=== PATIENT | male | born 1950 | race Caucasian/White ===

== ENCOUNTER → 2017-05-23 | Outpatient (CLI) | payer MEDICARE ==
--- NOTE | 2017-05-23 19:48 | US ---
EXAMINATION TYPE: US carotid duplex BILAT DATE OF EXAM: 05/23/2017 COMPARISON: NONE CLINICAL HISTORY: R41.3 Memory loss / Z86.73 Personal hx TIA. Memory loss EXAM MEASUREMENTS: RIGHT: Peak Systolic Velocity (PSV) cm/sec ----- Right CCA: 108.1 ----- Right ICA: 69.3 ----- Right ECA: 120.0 ICA/CCA ratio: 0.9 RIGHT: End Diastole cm/sec ----- Right CCA: 35.4 ----- Right ICA: 19.2 ----- Right ECA: 23.4 LEFT: Peak Systolic Velocity (PSV) cm/sec ----- Left CCA: 98.4 ----- Left ICA: 108.1 ----- Left ECA: 169.8 ICA/CCA ratio: LEFT: End Diastole cm/sec ----- Left CCA: 25.7 ----- Left ICA: 25.7 ----- Left ECA: 24.8 VERTEBRALS (direction of flow): Right Vertebral: Antegrade Left Vertebral: Antegrade Rhythm: Normal Bilateral vessels dive deep. Increased velocity in left ECA and right mid CCA. No significant stenosi s seen IMPRESSION: There is antegrade flow in the vertebral arteries. The images and measurements suggest u p to 25% stenosis in both internal carotid arteries. There is plaque and 50% narrowing of the proxima l right external carotid artery. Criteria for Assigning % of Stenosis / Diameter reduction (Estimation based on the indirect measurements of the internal carotid artery velocities (ICA PSV). 1. Normal (no stenosis)=ICA PSV < 125 cm/s: ratio < 2.0: ICA EDV<40 cm/s. 2. Less than 50% stenosis=ICA PSV < 125 cm/s: ratio < 2.0: ICA EDV<40 cm/s. 3. 50 to 69% stenosis=ICA PSV of 125 to 230 cm/s: ration 2.0 ? 4.0: ICA EDV 40-100 cm/s. 4. Greater than 70% stenosis to near occlusion= ICA PSV > 230 cm/s: ratio > 4.0: ICA EDV > 100 cm/s. 5. Near occlusion= ICA PSV velocities may be low or undetectable: variable ratio and ICA EDV. 6. Total occlusion=unable to detect flow.
--- NOTE | 2017-05-23 23:44 | MR ---
EXAMINATION TYPE: MR brain wo con DATE OF EXAM: 05/23/2017 COMPARISON: NONE HISTORY: Memory loss Standard multiplanar, multisequence MRI departmental protocol Multiplanar, multisequence images of the brain were acquired. Diffusion weighted imaging was performe d. FINDINGS: Ventricles have normal size. There is no mass effect nor midline shift. There is no sign of intracranial hemorrhage. There is no evidence of cerebral edema. I see no sign of a cortical infarct . Brainstem appears intact. Corpus callosum is within normal limits for age. Sella turcica appears no rmal. There is minimal mucosal thickening in the ethmoid air cells. IMPRESSION: Minimal ethmoid sinusitis. There is mild cerebral atrophy appropriate for age. Otherwise negative exa m.
== END | disposition home or self-care (01) ==
LOC: RADMRIMAIN 17:03
PROVIDERS: ATTEND Psychiatry & Neurology Neurology
DX: G31.1 Senile degeneration of brain, not elsewhere classified (principal); I65.21 Occlusion and stenosis of right carotid artery; Z86.73 Personal history of transient ischemic attack (TIA), and cerebral infarction without residual deficits
CPT/HCPCS: 70551; 93880

== ENCOUNTER → 2024-06-11 | Outpatient (CLI) | payer MEDICARE ==
--- NOTE | 2024-06-11 09:20 | XR ---
EXAMINATION TYPE: XR chest 2V DATE OF EXAM: 06/11/2024 CLINICAL INDICATION: Male, 74 years old with history of SOB, TECHNIQUE: Frontal and lateral views of the chest are obtained. COMPARISON: Outside chest x-ray August 10, 2012 FINDINGS: There is no focal air space opacity, pleural effusion, or pneumothorax seen. The cardiac silhouette size is stable and within normal limits. The osseous structures are intact. IMPRESSION: No acute cardiopulmonary process. [facility], , 06/11/2024 9:17 AM
== END | disposition home or self-care (01) ==
LOC: RADXRMAIN 09:03
PROVIDERS: ATTEND Family Medicine
DX: R06.02 Shortness of breath (principal)
CPT/HCPCS: 71046

== ENCOUNTER → 2024-06-25 | Outpatient (CLI) | payer MEDICARE ==
--- NOTE | 2024-06-25 13:13 | FL ---
EXAMINATION TYPE: FL barium swallow w video DATE OF EXAM: 06/25/2024 MODIFIED SWALLOW / DEGLUTITION STUDY CLINICAL HISTORY: Dysphagia. TECHNIQUE: Deglutition study is performed utilizing thin liquid barium, honey and nectar thick liqui d barium, barium thick pudding, and barium coated cracker. 1 minute 11 seconds of fluoro time and 15 images obtained. Total dose area product (DAP) in uGy*m?, mGy*cm? (or similar): n/p COMPARISON: Same day CT neck study. FINDINGS: The oral and pharyngeal phases show satisfactory initiation and propagation with all modali ties tested. Normal mastication is seen with solid modalities tested. A few episodes of transient pe netration with thin liquid barium. No aspiration with any modality tested. No significant pharyngeal residue was appreciated. IMPRESSION: No aspiration identified. Please refer to speech therapist notes for further details if necessary. [facility], , 06/25/2024 1:11 PM
== END | disposition home or self-care (01) ==
LOC: RADFLMAIN 07:35
PROVIDERS: ATTEND Otolaryngology
DX: R13.13 Dysphagia, pharyngeal phase (principal)
CPT/HCPCS: 74230

== ENCOUNTER → 2024-06-25 | Outpatient (CLI) | payer MEDICARE ==
[2024-06-25 08:07] LABS: African American GFR (CKD) >90 (>60 ml/min/1.73 sqM); Blood Urea Nitrogen 22 mg/dL (9-20); Non-African American GFR(CKD) >90 (>60 ml/min/1.73 sqM)
--- NOTE | 2024-06-25 09:06 | CT ---
EXAMINATION TYPE: CT soft tissue neck w con DATE OF EXAM: 06/25/2024 8:53 AM COMPARISON: None. CLINICAL INDICATION: Male, 74 years old with history of R13.10 DYSPHAGIA, UNSPECIFIED; PHH, dysphagia and dysphonia. TECHNIQUE: Standard enhanced CT of the neck. Axial sections with coronal and sagittal reformats were obtained. Contrast used:100ml mL of Isovue 300 with IV Contrast, CT DLP: 420.50 mGycm, Automated exposure control for dose reduction was used. FINDINGS: Visualized intracranial structures, orbits and globes, and mastoid air cells appear clear. There is l eftward nasal septal deviation. Mild lobulated mucosal thickening floor of the right maxillary sinus. Nasopharynx is clear. Oropharynx is clear. The epiglottis and prevertebral soft tissues are satisfactory. There may be slight asymmetric thickening along the right vocal fold, axial image 43 which can be cor related with direct inspection. Otherwise, subglottic structures and visualized upper lungs are clear. Thyroid gland shows a 9 mm cystic nodule in the left lobe of questionable clinical significance. Submandibular glands are satisfactory. Parotid glands are atrophic. No cervical adenopathy identified. Bones: Degenerative change particularly at the right sternoclavicular joint. Mild to moderate spondyl otic change mid to lower cervical spine. IMPRESSION: 1. Slight asymmetric thickening along the right vocal fold. Possibly positional. This can be correlat ed with direct inspection to exclude any mucosal lesion. 2. Slight leftward nasal septal deviation and mild mucosal thickening floor of the right maxillary si nus. 3. Incidental 9 mm cystic nodule left thyroid lobe of questionable clinical significance. [facility], Workstation: [id number], 06/25/2024 9:04 AM
== END | disposition home or self-care (01) ==
LOC: RADCTMAIN 07:20
PROVIDERS: ATTEND Family Medicine
DX: J02.9 Acute pharyngitis, unspecified (principal); J34.2 Deviated nasal septum
CPT/HCPCS: 82565; 84520; 70491; 36415; Q9967

== ENCOUNTER → 2024-07-20 | Outpatient (CLI) | payer MEDICARE ==
--- NOTE | 2024-07-21 08:09 | MR ---
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 Pain in neck for 2 months. TECHNIQUE: Multiplanar, multisequence imaging of the cervical spine is performed without and with IV contrast, 7.5 cc of gadolinium was given intravenously. COMPARISON: CT neck June 25, 2024. FINDINGS: Sagittal images of the cervical spine show the craniocervical junction to appear within nor mal limits. The cervical and upper thoracic spinal cord is normal in course, caliber, and signal. V ertebral alignment is stable and satisfactory. The vertebral body heights are normal. Some mild-to-m oderate multilevel disc space narrowing is redemonstrated. The bone marrow signal intensity is within normal limits. No suspicious postcontrast enhancement is seen. Axial images show C2-C3 level to appear within normal limits. Axial images at C3-C4 level showed broad based posterior disc protrusion effacing the anterior thecal sac and uncovertebral facet degenerative change bilaterally causing moderate to severe right greater than left bilateral neural foraminal narrowing. Axial images at C4-C5 level show loculated posterior disc protrusion effacing anterior thecal sac and uncovertebral facet spurring causing mild left and severe right-sided neural foraminal narrowing. Axial images at C5-C6 level show left paracentral disc protrusion effacing the anterolateral thecal s ac and marginal spurring causing mild bilateral neural foraminal narrowing. Axial images at C6-C7 and C7-T1 levels appear within normal limits. IMPRESSION: Multilevel degenerative changes in the upper to mid cervical spine are present as detaile d above. [facility], , 07/21/2024 8:06 AM
== END | disposition home or self-care (01) ==
LOC: RADMRIMAIN 17:54
PROVIDERS: ATTEND Psychiatry & Neurology Neurology
DX: M47.812 Spondylosis without myelopathy or radiculopathy, cervical region (principal); M50.31 Other cervical disc degeneration, high cervical region; M99.71 Connective tissue and disc stenosis of intervertebral foramina of cervical region
CPT/HCPCS: 72156; A9585

== ENCOUNTER → 2024-07-25 | Outpatient (CLI) | payer MEDICARE | END | disposition home or self-care (01) | LOC: LABWHC1 12:25 | PROVIDERS: ATTEND Psychiatry & Neurology Neurology | DX: M26.81 Anterior soft tissue impingement (principal); R25.3 Fasciculation; R49.8 Other voice and resonance disorders | CPT/HCPCS: 36415 ==

== ENCOUNTER → 2024-07-25 | Outpatient (CLI) | payer MEDICARE ==
--- NOTE | 2024-07-25 15:17 | MR ---
EXAMINATION TYPE: MR brain wo/w con DATE OF EXAM: 07/25/2024 1:37 PM COMPARISON: 05/23/2017.. CLINICAL INDICATION: Male, 74 years old with history of R47.1 DYSARTHRIA AND ANARTHRIA; PHH, problems with speech TECHNIQUE: Multi planar, multi sequence imaging was performed through the brain including: T1, T2, In version recovery, susceptibility weighted imaging and gradient echo imaging and Diffusion weighted im aging. The patient was then given intravenous contrast and multi planar, T1 fat-saturation images wer e obtained. IV Contrast: 7ml mL Gadobutrol FINDINGS: The padilla-white junctions, ventricular system, basal cisterns appear unremarkable. Diffusion-weighted imaging shows no evidence of restricted diffusion to suggest acute/subacute infarct. Intracranial ar terial flow voids are maintained. Midline structures show no abnormality. Minimal scattered foci of h igh T2 signal intensity are seen within the periventricular white matter. The susceptibility weighted images do not reveal any evidence for micro-hemorrhage. After administration of gadolinium, no abnor mal enhancement is seen. The bone marrow signal is within normal limits. Paranasal sinuses and mastoid air cells: No significant paranasal sinus disease. Visualized orbits: Orbital contents are intact. IMPRESSION: 1. No evidence of intracranial mass, acute/subacute infarct, or abnormal enhancement. 2. Minimal Nonspecific white matter changes, likely related to small vessel ischemic disease. [facility], , 07/25/2024 3:15 PM
== END | disposition home or self-care (01) ==
LOC: RADMRIMAIN 12:49
PROVIDERS: ATTEND Otolaryngology
DX: R90.82 White matter disease, unspecified (principal); R47.1 Dysarthria and anarthria
CPT/HCPCS: 70553; A9585

== ENCOUNTER 2024-08-13 08:19 | Emergency (ER) | payer MEDICARE ==
[2024-08-13 08:34] VITALS: BP 152/96; RESP 18; TEMP 97.2
[2024-08-13 08:51] VITALS: PULSE 90
--- NOTE | 2024-08-13 08:54 | ED ---
General Adult HPI - General Chief complaint: Recheck/Abnormal Lab/Rx Stated complaint: weakness, slurred speech Time Seen by Provider: 08/13/24 08:25 Source: patient, RN notes reviewed, old records reviewed Mode of arrival: ambulatory Limitations: no limitations - History of Present Illness Initial comments: This is a 74-year-old male who has had a 4-month history of difficulty breathing difficulty swallowing and now some weakness in his neck such that is hard to hold his neck up. Patient has had an extensive workup and everything so far has been negative he is waiting for referral from [facility] but it has been 2 weeks and his symptoms are progressing. Patient has had no fever or chills. Patient denies chest pain or palpitations. Patient any abdominal pain. Patient has nausea vomiting. Patient thinks he is dehydrated because he has not been able to drink normally. - Related Data Allergies Allergy/AdvReac Type Severity Reaction Status Date / Time No Known Allergies Allergy Verified 08/13/24 08:34 Review of Systems ROS Statement: Those systems with pertinent positive or pertinent negative responses have been documented in the HPI. ROS Other: All systems not noted in ROS Statement are negative. Past Medical History Past Medical History: Hyperlipidemia, Hypertension History of Any Multi-Drug Resistant Organisms: None Reported Past Surgical History: No Surgical Hx Reported Past Psychological History: No Psychological Hx Reported Smoking Status: Never smoker Past Alcohol Use History: Occasional Past Drug Use History: None Reported General Exam - General Exam Comments Initial Comments: GENERAL: Patient is well-developed and well-nourished. Patient is nontoxic and well- hydrated and is in mild distress. ENT: Neck is soft and supple. No significant lymphadenopathy is noted. Oropharynx is clear. Moist mucous membranes. Neck has full range of motion without eliciting any pain. EYES: The sclera were anicteric and conjunctiva were pink and moist. Extraocular movements were intact and pupils were equal round and reactive to light. Eyelids were unremarkable. PULMONARY: Unlabored respirations. Good breath sounds bilaterally. No audible rales rhonchi or wheezing was noted. CARDIOVASCULAR: There is a regular rate and rhythm without any murmurs gallops or rubs. ABDOMEN: Soft and nontender with normal bowel sounds. SKIN: Skin is clear with no lesions or rashes and otherwise unremarkable. NEUROLOGIC: Patient is alert and oriented x3. Cranial nerves II through XII are grossly intact. Motor and sensory are also intact. Patient has a hoarse voice. Symmetrical smile. MUSCULOSKELETAL: Normal extremities with adequate strength and full range of motion. No lower extremity swelling or edema. No calf tenderness. LYMPHATICS: No significant lymphadenopathy is noted PSYCHIATRIC: Normal psychiatric evaluation. Limitations: no limitations Course Vital Signs 08/13/24 08:25 Temperature 97.2 F L Pulse Rate 90 Respiratory 18 Rate Blood Pressure 152/96 O2 Sat by Pulse 98 Oximetry Medical Decision Making - Medical Decision Making Was pt. sent in by a medical professional or institution (VANNESA Clifton, [employer] II [employer]SEM[employer]ER, urgent care, hospital, or [facility]...) When possible be specific @ -No Did you speak to anyone other than the patient for history (EMS, parent, family, police, friend...)? What history was obtained from this source @ -No Did you review nursing and triage notes (agree or disagree)? Why? @ -I reviewed and agree with nursing and triage notes Were old charts reviewed (outside hosp., previous admission, EMS record, old EKG, old radiological studies, urgent care reports/EKG's, [facility] records)? Report findings @ -No old charts were reviewed Differential Diagnosis? @ -Differential Weakness: Hypoglycemia, myasthenia gravis, Guillain-Connor, ALS, shock, sepsis, hyponatrem ia, anemia, infection, MA, ETOH, adverse medicine reaction, overdose, stroke, this is not meant to be an all-inclusive list. EKG interpreted by me (3pts min.). @ -As above X-rays interpreted by me (1pt min.). @ -None done CT interpreted by me (1pt min.). @ -None done U/S interpreted by me (1pt. min.). @ -None done What testing was considered but not performed or refused? (CT, X-rays, U/S, labs)? Why? @ -None What meds were considered but not given or refused? Why? @ -None Did you discuss the management of the patient with other professionals (professionals i.e. VANNESA Clifton, B[employer] II ASSEMBLER, lab, RT, psych nurse, social research assistant, delicatessen slicer, teacher, environmental protection officer, immigration case manager)? Give summary @ -I spoke with Dr. Nair about this case as well as Dr. Riley. Was smoking cessation discussed for >3mins.? @ -No Was critical care preformed (if so, how long)? @ -No Were there social determinants of health that impacted care today? How? (Homelessness, low income, unemployed, alcoholism, drug addiction, transportat ion, low edu. Level, literacy, decrease access to med. care, nursing home, rehab)? @ -No Was there de-escalation of care discussed even if they declined (Discuss DNR or withdrawal of care, Hospice)? DNR status @ -No What co-morbidities impacted this encounter? (DM, HTN, Smoking, COPD, CAD, Cancer, CVA, ARF, Chemo, Hep., AIDS, mental health diagnosis, sleep apnea, morbid obesity)? @ -None Was patient admitted / discharged? Hospital course, mention meds given and route, prescriptions, significant lab abnormalities, going to OR and other pertinent info. @ -Patient states he is slowly getting worse but he is stable to go home and will continue to call the neuromuscular center that Dr. Riley recommended. I also spoke with Dr. Ballard's office they stated that they would call the office today to try to expedite the care of this patient. Patient states he will return back to the ER if symptoms worsen and he has any problems breathing Undiagnosed new problem with uncertain prognosis? @ -No Drug Therapy requiring intensive monitoring for toxicity (Heparin, Nitro, Insulin, Cardizem)? @ -No Were any procedures done? @ -No Diagnosis/symptom? @ -Dysarthria Acute, or Chronic, or Acute on Chronic? @ -Acute on chronic Uncomplicated (without systemic symptoms) or Complicated (systemic symptoms)? @ -Complicated Side effects of treatment? @ -No Exacerbation, Progression, or Severe Exacerbation? @ -No Poses a threat to life or bodily function? How? (Chest pain, USA, MA, pneumonia, PE, COPD, DKA, ARF, appy, cholecystitis, CVA, Diverticulitis, Homicidal, Suicidal, threat to staff... and all critical care pts) @ -No - Lab Data Result diagrams: 08/13/24 09:05 08/13/24 10:03 Lab Results 08/13/24 08/13/24 Range/Units 09:05 10:03 WBC 8.55 (4.50-10.00) 10*3/uL RBC 5.62 H (4.40-5.60) 10*6/uL Hgb 17.8 H (13.0-17.0) g/dL Hct 52.0 H (39.6-50.0) % MCV 92.5 (80.0-97.0) fL MCH 31.7 (27.0-32.0) pg MCHC 34.2 (32.0-37.0) g/dL Plt Count 233 (140-440) 10*3/uL MPV 10.0 (9.5-12.2) fL Immature Gran % (Auto) 0.4 % Neutrophils % 61.9 % Lymphocytes % 27.6 % Monocytes % 9.1 % Eosinophils % 0.5 % Basophils % 0.5 % Immature Gran # 0.03 (0.00-0.04) 10*3/uL Neutrophils # 5.30 (1.80-7.70) 10*3/uL Lymphocytes # 2.36 (0.90-5.00) 10*3/uL Monocytes # 0.78 (0.20-1.00) 10*3/uL Eosinophils # 0.04 (0.04-0.35) 10*3/uL Basophils # 0.04 (0.00-0.10) 10*3/uL Sodium 140 (137-145) mmol/L Potassium 4.3 (3.5-5.1) mmol/L Chloride 100 (98-107) mmol/L Carbon Dioxide 33 H (22-30) mmol/L Anion Gap 7 mmol/L BUN 14 (9-20) mg/dL Creatinine 0.71 (0.66-1.25) mg/dL Est GFR (CKD-EPI)AfAm >90 (>60 ml/min/1.73 sqM) Est GFR (CKD-EPI)NonAf >90 (>60 ml/min/1.73 sqM) Glucose 94 (74-99) mg/dL Calcium 9.2 (8.4-10.2) mg/dL Magnesium 2.0 (1.6-2.3) mg/dL Total Bilirubin 0.7 (0.2-1.3) mg/dL AST 27 (17-59) U/L ALT 29 (4-49) U/L Alkaline Phosphatase 64 (38-126) U/L Creatine Kinase 60 (55-170) U/L Total Protein 6.9 (6.3-8.2) g/dL Albumin 4.2 (3.5-5.0) g/dL Disposition Clinical Impression: Dysarthria Disposition: HOME SELF-CARE Condition: Good Additional Instructions: Patient should return to the emergency department is any difficulty breathing or worsening symptoms Follow-up with [facility] DANAY Is patient prescribed a controlled substance at d/c from ED?: No Referrals: Kyle Nair DO [Primary Care Provider] - 1-2 days Time of Disposition: 11:41
[2024-08-13] MEDS: SODIUM CHLORIDE 0.9% 1,000 ML IV ONE (09:13)
[2024-08-13 09:14] LABS: Basophils # (A) 0.04 10*3/uL (0.00-0.10); Basophils % (A) 0.5 %; Eosinophils # (A) 0.04 10*3/uL (0.04-0.35); Eosinophils % (A) 0.5 %; HGB 17.8 g/dL (13.0-17.0); Lymphocytes # (A) 2.36 10*3/uL (0.90-5.00); Lymphocytes % (A) 27.6 %; MCH 31.7 pg (27.0-32.0); MCHC 34.2 g/dL (32.0-37.0); MCV 92.5 fL (80.0-97.0); Monocytes # (A) 0.78 10*3/uL (0.20-1.00); Monocytes % (A) 9.1 %; Neutrophils % (A) 61.9 %; Platelet Count 233 10*3/uL (140-440); RBC 5.62 10*6/uL (4.40-5.60); RDW 13.6 % (11.5-14.5); WBC 8.55 10*3/uL (4.50-10.00)
[2024-08-13 10:27] LABS: ALT 29 U/L (4-49); AST 27 U/L (17-59); African American GFR (CKD) >90 (>60 ml/min/1.73 sqM); Albumin 4.2 g/dL (3.5-5.0); Alkaline Phosphatase 64 U/L (38-126); Anion Gap 7 mmol/L; Blood Urea Nitrogen 14 mg/dL (9-20); Calcium 9.2 mg/dL (8.4-10.2); Carbon Dioxide 33 mmol/L (22-30); Chloride 100 mmol/L (98-107); Creatine Kinase 60 U/L (55-170); Glucose 94 mg/dL (74-99); Non-African American GFR(CKD) >90 (>60 ml/min/1.73 sqM); Potassium 4.3 mmol/L (3.5-5.1); Sodium 140 mmol/L (137-145); Total Bilirubin 0.7 mg/dL (0.2-1.3); Total Protein 6.9 g/dL (6.3-8.2)
--- NOTE | 2024-08-13 17:02 | P.CNNES ---
History of Present Illness Consult date: 08/13/24 Requesting physician: Gurdeep Schwarz Reason for Consult: Swallowing problems and breathing problems History of Present Illness: This is a 74-year-old gentleman who presents emergency department because of worsening of his difficulty swallowing, neck muscle weakness and worsening weakness in his hands. Patient is accompanied with his oszszanm-lh-uso who is at bedside. Initially patient stated that his symptoms began about 4-month ago but then later he stated that it could have been at least January 2024 in which patient has been having difficulty swallowing and he does not recall if it started with liquids or solids he thinks started with liquids that progressively got worse. He feels he chokes every time he drinks liquid and with the solids he has to cut the food down and has difficulty swallowing large tablets. Then he noticed that when he stands up his neck muscle is weak and it drops. He feels like he is short of breath with exertion. He also noticed recently that he is having hand weakness on the right and there is atrophy between the thumb and the index finger on the right hand and recently he noticed that starting on the left. He feels it is weak to grab things with the right hand and requires assistance with the left hand. He also has been having muscle twitching. He denies any ptosis. Denies any diplopia. Denies any numbness or urinary or bowel issues. 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 He follows up with Dr. Abreu and he had extensive workup he had MRI of the brain cervical spine myasthenia gravis lab workup and was told it was negative. He is pending to have EMG and [facility] Asyynbxk-cp-ely states in the last 2 weeks they have been trying to get a hold of [facility] facility but still pending chair and answer from them. Denies any sickness prior to these symptoms. Also with some rest he feels slightly better but not drastically. Also his speech tone is is getting worse according to the [id number]. Some of the prior workup consisted of: TSH is within normal limits Hemoglobin A1c 6.1 Acetylcholine receptor antibody is negative MRI of the brain is reported as no evidence of intracranial mass, acute/subacute infarct or abnormal enhancement MRI Cervical spine is reported as multilevel degenerative changes in the upper to mid cervical spine are present as detailed above. Review of Systems As per HPI. Past Medical History Past Medical History: Hyperlipidemia, Hypertension History of Any Multi-Drug Resistant Organisms: None Reported Past Surgical History: No Surgical Hx Reported Past Psychological History: No Psychological Hx Reported Smoking Status: Never smoker Past Alcohol Use History: Occasional Past Drug Use History: None Reported Medications and Allergies Allergies Allergy/AdvReac Type Severity Reaction Status Date / Time No Known Allergies Allergy Verified 08/13/24 08:34 Physical Examination - Vital Signs Vital Signs: Vital Signs Temp Pulse Resp BP Pulse Ox 08/13/24 08:25 97.2 F L 90 18 152/96 98 Intake and Output 08/13/24 08/13/24 08/13/24 06:59 14:59 22:59 Other: Weight 72.575 kg General: Sitting up in chair and is not in acute distress. Neuro: The patient is awake, alert, oriented to self, place and time. Is following simple commands. No aphasia. Has very spastic voice. Pupils are round, equal and reactive to light. Visual beltre are full to confrontation. EOM intact and no nystagmus. Upward sustained gaze is no ptosis. Has mildly easy to open eyes. [place] there is some fasciculation of tongue. Has neck weakness that is 3-4 bilaterally to flexion and extension. Motor: Right thumb flexion and extension is 4+ to 5-, digit flexion on the right is 4+ to 5-. Otherwise 5/5. Has mild atrophy over the first dorsal interosseous > left. Sensation: Normal to touch throughout Reflex: 3+ throughout. Cerebellar: Normal finger to nose. Plantars: Mute bilaterally. Results - Laboratory Findings CBC and BMP: 08/13/24 09:05 08/13/24 10:03 Abnormal Lab Findings: Abnormal Labs 08/13/24 08/13/24 09:05 10:03 RBC 5.62 H Hgb 17.8 H Hct 52.0 H Carbon Dioxide 33 H Assessment and Plan Assessment: This is a 74 y/o gentleman who has been having proressive dysphagia since at least 01/2024, dysarthria, weakness right hand with some atrophy, muscle twitching that is progressive. MRI Brain and C-spine and myasthenia gravis is negative that would explain symptoms. Progressive dysphagia, dysarthria, weakness and muscle twitching: Of of the differential is motor neuron disease. Also rule out ?myopathy (CK was normal) but normal CK does not rule out myopathy. Plan: Recommend to pursue with EMG with NCS of uppers and lowers. He has been waiting for William Gonzales to coordinate an appointment. The ED physician will attempt to contact his outpatient neurologist (Dr. Abreu) to either transfer the patient or have his EMG vs schedule it earlier as outpatient. Thank you for the consultation. Time with Patient: Greater than 30
== END 2024-08-13 12:24 | disposition home or self-care (01) ==
LOC: EC 08:19
DX: R47.1 Dysarthria and anarthria (principal)
CPT/HCPCS: 36415; 80053; 82550; 83735; 85025; 96360; 99285